=== PATIENT | male | born 1955 | race Caucasian/White ===

== ENCOUNTER → 2025-10-15 09:21 | Outpatient (REF) | payer MEDICARE, SELFPAY ==
[2025-10-15 11:41] LABS: Depakane 45.5 ug/ml (50.0-120.0)
[2025-10-15 11:42] LABS: ALT (SGPT) 18 U/L (0-50); AST (SGOT) 22 U/L (17-59); Albumin 3.2 g/dl (3.5-5.0); Alkaline Phosphatase 27 U/L (38-126); Blood Urea Nitrogen 17 mg/dl (9-20); Calcium 8.6 mg/dl (8.4-10.2); Carbon Dioxide 32 mmol/L (22-30); Chloride 105 mmol/L (98-107); Glucose 81 mg/dl (70-99); Potassium 4.0 mmol/L (3.5-5.1); Sodium 137 mmol/L (135-145); Total Protein 5.4 g/dl (6.3-8.2); eGFR > 60.00
[2025-10-15 12:07] LABS: Hematocrit 35.3 % (39.0-52.0); Hemoglobin 11.7 g/dL (13.0-18.0); Mean Corp Hgb Conc. 33.1 g/dL (33.0-37.0); Mean Corpuscular Volume 93.9 fL (80.0-94.0); Nucleated Red Blood Cells % 0 % (-); Platelet Count 99 10^3/uL (130-400); Red Cell Dist. Width 12.1 % (11.5-14.5)
[2025-10-15 12:12] LABS: TSH 2.42 uIU/ml (0.47-4.68)
== END ==
LOC: OLABPATH 09:21
PROVIDERS: ATTENDING PHYSICIAN Internal Medicine
DX: G30.9 Alzheimer's disease, unspecified (principal); F41.9 Anxiety disorder, unspecified
CPT/HCPCS: 36415; 80053; 80164; 84443; 85025